=== PATIENT | male | born 1945 | race Two or more races ===

== ENCOUNTER 2021-10-27 06:05 | Day surgery (SDC) | payer OTHER ==
[~2021-10-27 06:05] MED LIST: ATORVASTATIN CA10 MG PO; GLIPIZIDE XL5 MG PO; METFORMIN HCL1000 M2 PO
[2021-10-27] MEDS ORDERED: ULTRACET PO (10:03)
== END 2021-10-27 12:15 | disposition home or self-care (01) ==
LOC: CIR.AMB 06:05
PROVIDERS: ATTEND Surgery
DX: C20 Malignant neoplasm of rectum (principal); I25.10 Atherosclerotic heart disease of native coronary artery without angina pectoris; E78.5 Hyperlipidemia, unspecified; Z95.0 Presence of cardiac pacemaker; Z95.5 Presence of coronary angioplasty implant and graft; I25.2 Old myocardial infarction; Z71.6 Tobacco abuse counseling; F17.210 Nicotine dependence, cigarettes, uncomplicated; E11.9 Type 2 diabetes mellitus without complications; N40.0 Benign prostatic hyperplasia without lower urinary tract symptoms; F10.21 Alcohol dependence, in remission; I87.2 Venous insufficiency (chronic) (peripheral)

== ENCOUNTER → 2022-01-23 08:00 | Outpatient (CLI) | payer OTHER ==
[~2022-01-23] VITALS: Ht 160 cm; Wt 59.4 kg
[~2022-01-23 08:00] MED LIST changes: +CARVEDILOL6.25 MG; +CILOSTAZOL50 MG PO; +GABAPENTIN800 M1 PO; +PLAVIX75 MG PO; +SPIRONOLACTONE25 MG PO; +ULTRACET PO; +ZESTRIL5 MG PO
== END | disposition home or self-care (01) ==
LOC: LAB 08:00 → SURH 01-26 10:15 → EDSTATUS 01-26 10:15 → SURH 01-26 17:30
PROVIDERS: ATTEND Surgery
DX: C20 Malignant neoplasm of rectum (principal); R19.5 Other fecal abnormalities; R59.0 Localized enlarged lymph nodes; R97.0 Elevated carcinoembryonic antigen [CEA]; Z20.828 Contact with and (suspected) exposure to other viral communicable diseases

== ENCOUNTER 2022-05-28 08:25 | Inpatient (IN) | payer OTHER ==
[~2022-05-28] VITALS: Ht 160 cm; Wt 58.5 kg
[2022-06-02] MEDS ORDERED: CLOPIDOGREL BIS75 MG (10:22)
[2022-06-02] MEDS ORDERED: CILOSTAZOL50 MG (10:22)
[2022-06-02] MEDS ORDERED: ATORVASTATIN CA40 MG (10:22)
[2022-06-02] MEDS ORDERED: GABAPENTIN800 M1 (10:22)
[2022-06-04] MEDS ORDERED: HYOSCYAMINE0.125 M1 SL (09:30)
[2022-06-04] MEDS ORDERED: OXYC1TAB9 PO (09:30)
[2022-06-04] MEDS ORDERED: INTESTINEX680 M1 PO (09:31)
== END 2022-06-04 13:55 | disposition home or self-care (01) | DRG 331 ==
LOC: CIR.AMB 08:25 → EDSTATUS 08:26 → SURH 06-01 06:49 → O/R 06-01 06:49 → SURH 06-01 09:09
PROVIDERS: ADMIT Surgery; ATTEND Surgery
PROC: 0DBP4ZZ Excision of Rectum, Percutaneous Endoscopic Approach (ICD-10-PCS; 2022-06-01)
PROC: 07BC4ZZ Excision of Pelvis Lymphatic, Percutaneous Endoscopic Approach (ICD-10-PCS; 2022-06-01)
PROC: 0DTN4ZZ Resection of Sigmoid Colon, Percutaneous Endoscopic Approach (ICD-10-PCS; principal; 2022-06-01 21:00)
DX: C20 Malignant neoplasm of rectum (principal); R97.0 Elevated carcinoembryonic antigen [CEA]; R19.5 Other fecal abnormalities

== ENCOUNTER 2022-05-29 07:41 | Outpatient (CLI) | payer OTHER | END 2022-05-29 07:52 | disposition home or self-care (01) | LOC: LAB 07:41 | PROVIDERS: ATTEND Surgery | DX: C20 Malignant neoplasm of rectum (principal); R19.5 Other fecal abnormalities; R59.0 Localized enlarged lymph nodes; R97.0 Elevated carcinoembryonic antigen [CEA]; I10 Essential (primary) hypertension ==